=== PATIENT | male | born 1995 | race Caucasian/White ===

== ENCOUNTER 2023-04-23 13:15 | Emergency (ER) | payer BC, SELFPAY ==
[2023-04-23] VITALS (7 sets, daily range): BP systolic 119–138; BP diastolic 70–78; PULSE 80–100; RESP 14–23; TEMP 36.7; O2SAT 96–98; BMI 30.7
--- NOTE | 2023-04-23 13:24 | ECG_ITS ---
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
--- NOTE | 2023-04-23 13:45 | XR_ITS ---
[address] [address] Patient Name: RUFINO CAMACHO MRN: [id number] date: 1995 Sex: M Assigned Patient Location: ER Current Patient Location: ED.MAIN Accession/Order Number: [id number] Exam Date: 04/23/2023 13:45 Report Date: 04/23/2023 14:19 At the request of: LINK KAUR Procedure: XR chest 1V XR chest 1V 04/23/2023 1:45 PM EDT INDICATION: Chest pain COMPARISON: CT angiography of the chest 09/19/2022 FINDINGS: Cardiomediastinal silhouette within normal limits. No focal consolidation or pleural effusion. No pneumothorax. No acute fracture or dislocation. IMPRESSION: No acute cardiopulmonary process. Electronically authenticated by: GEO GOLDSTEIN Date: 04/23/2023 14:19
--- NOTE | 2023-04-23 13:50 | ED.CHESTPAI1 ---
HPI - Chest Pain General Chief Complaint: Chest Pain Stated Complaint: CHEST PAIN, TINGLING IN ARMS Time Seen by Provider: 04/23/23 13:24 Source: patient Mode of arrival: walk-in History of Present Illness HPI narrative: 27-year-old male past medical history anxiety and depression who is on Seroquel and propranolol presents for midsternal chest pain that radiated down his left arm that started at midnight last night. Symptoms lasted a couple minutes. Denies alleviating or aggravating factors. His symptoms have resolved and has now been about 14 hours since symptom onset. He states that he came in because he just wanted to know what could have caused that. He smokes cigarettes and marijuana. Denies illegal drug use. Denies fever, cough, dizziness, headache, vision changes, abd or back pain, n/v/d, SOB Severity: mild Risk Factors Coronary artery disease risk factors: smoking history Related Data Home Medications Medication Instructions Recorded Confirmed propranolol 20 mg tablet 20 mg PO TID 04/23/23 04/23/23 quetiapine 200 mg tablet 200 mg PO DAILY 04/23/23 04/23/23 Allergies Allergy/AdvReac Type Severity Reaction Status Date / Time No Known Drug Allergies Allergy Verified 04/23/23 13:21 Review of Systems ROS Status of ROS 10 or more systems reviewed and unremarkable except as noted in history and below [facility] Medical History (Updated 04/23/23 @ 14:15 by GALO Victor) Exam Narrative Exam Narrative: General: A&Ox3, no distress, talking in full an complete sentences, fidgety skin: warm, dry, intact head: normocephalic, atraumatic eyes: EOMI nose: nares patent neck: supple, trachea midline cardiac: +S1/S1. no murmur respiratory: lungs CTA, non-labored, no wheezing, no retractions chest wall: NT abdomen: soft, NT extremities: FROM x 4, strength +5/5 neuro: A&Ox3 psych: appropriate mood and affect, cooperative Constitutional Vital Signs - 24 hr 04/23/23 13:21 04/23/23 13:23 04/23/23 13:23 Temperature 98.1 F Pulse Rate 100 H 94 H Pulse Rate [Monitor] 90 Respiratory Rate 16 16 15 Blood Pressure 137/78 H Blood Pressure [Right Arm] 138/78 H Pulse Oximetry 98 97 98 Oxygen Delivery Method Room Air 04/23/23 13:30 04/23/23 13:48 04/23/23 13:50 Temperature Pulse Rate 80 80 82 Pulse Rate [Monitor] Respiratory Rate 20 18 23 Blood Pressure 119/70 Blood Pressure [Right Arm] Pulse Oximetry 97 96 98 Oxygen Delivery Method 04/23/23 14:00 04/23/23 14:10 Temperature Pulse Rate 84 91 H Pulse Rate [Monitor] Respiratory Rate 16 14 Blood Pressure Blood Pressure [Right Arm] Pulse Oximetry 98 98 Oxygen Delivery Method Course Vital Signs Vital signs: Vital Signs Temperature 98.1 F 04/23/23 13:21 Pulse Rate 90 04/23/23 13:21 Respiratory Rate 16 04/23/23 13:21 Blood Pressure 138/78 H 04/23/23 13:21 Pulse Oximetry 98 04/23/23 13:21 Oxygen Delivery Method Room Air 04/23/23 13:21 Temperature 98.1 F 04/23/23 13:21 Pulse Rate 91 H 04/23/23 14:10 Respiratory Rate 14 04/23/23 14:10 Blood Pressure 119/70 04/23/23 13:30 Pulse Oximetry 98 04/23/23 14:10 Oxygen Delivery Method Room Air 04/23/23 13:21 MDM - Chest Pain MDM Narrative Medical decision making narrative: EKG sinus rhythm at a rate of 93. No significant lab normalities. No acute findings on final read of chest x-ray. Drug screen is pending and patient states that he urinated prior to coming here and does not have to urinate. Possibly anxiety is patient is currently fidgety and chewing on his fingers. Symptoms started 14 hours ago and have completely resolved. He is to follow-up with family doctor. afebrile, not tachycardic, non toxic appearing and ambulating at baseline and hemodynamically stable to be d/c. answered all questions. pt in agreement with tx. educated when to return to ER. Differential Diagnosis Differential diagnosis: Likely atypical chest pain Lab Data Attestation: I reviewed the patient's lab results. Labs: Lab Results 04/23/23 Range/Units 13:43 WBC 5.8 (4.0-11.0) 10^3/uL RBC 4.45 L (4.70-6.10) 10^6/uL Hgb 12.6 L (14.0-18.0) g/dL Hct 37.2 L (42.0-54.0) % MCV 83.6 (80.0-94.0) fL MCH 28.3 (25.9-34.0) pg MCHC 33.9 (29.9-35.2) g/dL RDW 12.7 (11.0-15.0) % Plt Count 323 (150-450) 10^3/uL MPV 9.4 L (9.5-13.5) fL Neut % (Auto) 57.2 (43.0-75.0) % Lymph % (Auto) 31.5 (20.5-60.0) % Dodge % (Auto) 8.5 (1.7-12.0) % Eos % (Auto) 2.4 (0.9-7.0) % Baso % (Auto) 0.2 (0.2-2.0) % Neut # (Auto) 3.3 (1.4-6.5) 10^3/uL Lymph # (Auto) 1.8 (1.2-3.8) 10^3/uL [place] # (Auto) 0.5 (0.3-0.8) 10^3/uL Eos # (Auto) 0.1 (0.0-0.7) 10^3/uL Baso # (Auto) 0.0 (0.0-0.1) 10^3/uL Abs Immat Gran (auto) 0.01 (0.00-0.03) 10^3/uL Imm/Tot Granulo (auto) 0.2 (0.0-0.5) % Sodium 133 L (136-145) mmol/L Potassium 3.5 (3.5-5.1) mmol/L Chloride 103 (98-107) mmol/L Carbon Dioxide 22.9 (21.0-32.0) mmol/L Anion Gap 10.6 BUN 17.0 (7.0-18.0) mg/dL Creatinine 0.92 (0.70-1.30) mg/dL Est GFR ( Amer) >60 (>=60) Est GFR (Non-Af Amer) >60 (>=60) BUN/Creatinine Ratio 18.5 Glucose 113 H (74-106) mg/dL Calcium 9.1 (8.5-10.1) mg/dL Magnesium 1.8 (1.8-2.4) mg/dL Troponin I High Sens <4.0 L (4.0-76.1) pg/mL NT-Pro-B Natriuret Pep 235.0 (<=450.0) pg/mL ECG Data Prior ECG tracings: not available for review Heart Score History: Slightly/Non-Suspicious ECG: Normal Age: <45 years Risk Factors: 1 or 2 Risk Factors Troponin: <Normal Limit Total Heart Score Recommendations & Risks:: 1 Discharge Plan Discharge Chief Complaint: Chest Pain Clinical Impression: Chest pain Qualifiers: Chest pain type: unspecified Qualified Code(s): R07.9 - Chest pain, unspecified Patient Disposition: Home, Self-Care Time of Disposition Decision: 14:17 Condition: Good Mode of Transportation: Private Vehicle Prescriptions / Home Meds: No Action quetiapine 200 mg tablet 200 mg PO DAILY propranolol 20 mg tablet 20 mg PO TID Instructions: Chest Pain (ED) Stand Alone Forms: Portal Instructions Referrals: SIMÓN TAN [Primary Care Provider] - 1 week Discharge Date/Time: 04/23/23 14:28
[2023-04-23 13:59] LABS: Magnesium 1.8 mg/dL (1.8-2.4)
[2023-04-23 14:02] LABS: Basophils Percent Auto 0.2 % (0.2-2.0); Eosinophils Absolute Auto 0.1 10^3/uL (0.0-0.7); Eosinophils Percent Auto 2.4 % (0.9-7.0); Hematocrit 37.2 % (42.0-54.0); Hemoglobin 12.6 g/dL (14.0-18.0); Immature Granulocytes Abs Auto 0.01 10^3/uL (0.00-0.03); Immature Granulocytes Pct Auto 0.2 % (0.0-0.5); Lymphocytes Absolute Auto 1.8 10^3/uL (1.2-3.8); Lymphocytes Percent Auto 31.5 % (20.5-60.0); Mean Corpuscular HGB Conc 33.9 g/dL (29.9-35.2); Mean Corpuscular Hemoglobin 28.3 pg (25.9-34.0); Mean Corpuscular Volume 83.6 fL (80.0-94.0); Mean Platelet Volume 9.4 fL (9.5-13.5); Monocytes Absolute Auto 0.5 10^3/uL (0.3-0.8); Monocytes Percent Auto 8.5 % (1.7-12.0); Neutrophils Absolute Auto 3.3 10^3/uL (1.4-6.5); Neutrophils Percent Auto 57.2 % (43.0-75.0); Platelet Count 323 10^3/uL (150-450); Red Blood Count 4.45 10^6/uL (4.70-6.10); Red Cell Distribution Width 12.7 % (11.0-15.0); White Blood Count 5.8 10^3/uL (4.0-11.0)
[2023-04-23 14:10] LABS: Anion Gap 10.6; BUN Creatinine Ratio 18.5; Calcium 9.1 mg/dL (8.5-10.1); Carbon Dioxide 22.9 mmol/L (21.0-32.0); Chloride 103 mmol/L (98-107); Estimated GFR (African America >60 (>=60); Estimated GFR (Non-African Ame >60 (>=60); Glucose 113 mg/dL (74-106); Potassium 3.5 mmol/L (3.5-5.1); Sodium 133 mmol/L (136-145); Troponin I High Sensitivity <4.0 pg/mL (4.0-76.1)
== END 2023-04-23 14:28 | disposition home or self-care (01) ==
PROVIDERS: Physician Assistant; Emergency Provider Emergency Medicine Emergency Medical Services; PCP Family Medicine
DX: R07.9 Chest pain, unspecified (principal); F41.9 Anxiety disorder, unspecified; F32.A Depression, unspecified; F17.210 Nicotine dependence, cigarettes, uncomplicated; F12.90 Cannabis use, unspecified, uncomplicated; Z79.899 Other long term (current) drug therapy
CPT/HCPCS: 36415; 71045; 80048; 80307; 83735; 83880; 84484; 85025; 93005; 99285

== ENCOUNTER 2023-05-22 11:35 | Emergency (ER) | payer BC, OTHER, SELFPAY ==
[2023-05-22 11:43] VITALS: BP 148/94; PULSE 103; RESP 18; TEMP 36.6; O2SAT 100; BMI 27.9
[2023-05-22 11:48] VITALS: PULSE 102
--- NOTE | 2023-05-22 11:53 | ECG_ITS ---
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
--- NOTE | 2023-05-22 11:53 | XR_ITS ---
The [address] [address] Patient Name: RUFINO CAMACHO MRN: [id number] date: 1995 Sex: M Assigned Patient Location: ER Current Patient Location: ER Accession/Order Number: [id number] Exam Date: 05/22/2023 12:00 Report Date: 05/22/2023 12:19 At the request of: LULY AVILA Procedure: XR chest 1V EXAM: XR chest 1V HISTORY: . SOB . COMPARISON: 10/24/2022 TECHNIQUE: Single view of the chest FINDINGS: Heart and vascularity are unremarkable. Lungs are free of focal infiltrates. EKG leads overlie the chest. XR/XR chest 1V IMPRESSION: No acute heart or lung disease identified. Electronically authenticated by: SHRUTI TOWNSEND Date: 05/22/2023 12:19
--- NOTE | 2023-05-22 11:55 | ED_ITS ---
HPI - Chest Pain General Chief Complaint: Chest Pain Stated Complaint: CHEST PAIN/FEELS MUSCLES LIKE TIGHTENING Time Seen by Provider: 05/22/23 11:48 Source: patient Mode of arrival: walk-in Limitations: no limitations History of Present Illness HPI narrative: 27-year-old male presents for pain in his chest. The entire chest hurts and it's been this way for about seven hours continuously. No trauma. He's been und erlying stress recently and he ran out of his propanolol. He feels that he couldn't get through to his doctor's office. He is on propanolol for palpitations. No fever or cough or complaints of back pain. No injury. Related Data Home Medications Medication Instructions Recorded Confirmed propranolol 20 mg tablet 20 mg PO TID 04/23/23 04/23/23 quetiapine 200 mg tablet 200 mg PO DAILY 04/23/23 04/23/23 Previous Rx's Medication Instructions Recorded propranolol 20 mg tablet 20 mg PO Q8H #14 tabs 05/22/23 Allergies Allergy/AdvReac Type Severity Reaction Status Date / Time No Known Drug Allergies Allergy Verified 04/23/23 13:21 Review of Systems ROS Narrative A ten point review of systems is negative except as noted above. [facility] Medical History (Updated 05/22/23 @ 12:28 by Skyler Loaiza MD) Exam Narrative Exam Narrative: Nurses note and vital signs reviewed and patient is not hypoxic. General: The patient appears well and in no apparent distress. Patient is resting comfortably on cart. Skin: Warm, dry, no pallor noted. There is no rash noted. Head: Normocephalic, atraumatic Eye: Normal conjunctiva, no drainage Ears, Nose, Mouth, and Throat: oral mucosa is moist. Nares patent. Cardiovascular: Regular Rate and Rhythm, minimally tachycardic Respiratory: Patient is in no distress, no accessory muscle use, lungs are rajeev ar to auscultation, no wheezing, rales or rhonchi Back: non-tender GI: soft and nontender Musculoskeletal: The patient has no evidence of calf tenderness, no pitting edema, symmetrical pulses noted bilaterally Neurological: A&O, normal speech Psychiatric: Cooperative Constitutional Vital Signs, click to edit/add: Last Vital Signs Temp 98 F 05/22/23 11:43 Pulse 103 H 05/22/23 11:43 Resp 18 08/03/23 11:43 BP 148/94 H 05/22/23 11:43 Pulse Ox 100 05/22/23 11:43 O2 Del Method Room Air 05/22/23 11:43 Course Vital Signs Vital signs: Vital Signs Temperature 98 F 05/22/23 11:43 Pulse Rate 103 H 05/22/23 11:43 Respiratory Rate 18 05/22/23 11:43 Blood Pressure 148/94 H 05/22/23 11:43 Pulse Oximetry 100 05/22/23 11:43 Oxygen Delivery Method Room Air 05/22/23 11:43 Temperature 98 F 05/22/23 11:43 Pulse Rate 103 H 05/22/23 11:43 Respiratory Rate 18 05/22/23 11:43 Blood Pressure 148/94 H 05/22/23 11:43 Pulse Oximetry 100 05/22/23 11:43 Oxygen Delivery Method Room Air 05/22/23 11:43 MDM - Chest Pain MDM Narrative Medical decision making narrative: chest x-ray and EKG both showed no acute findings. He's run out of his propranolol and is given a short refill. He is going to call his doctor for follow-up. At this point I do not suspect cardiac or pulmonary etiology. He was offered IM Toradol but did not want to. Treatment diagnosis and follow-up were discussed with the patient. Differential Diagnosis Differential diagnosis: Likely pneumothorax, atypical chest pain, st elevation myocardial infarction, costochondritis and chest pain Imaging Data Chest x-ray: Radiologist's impression: chest x-ray per radiologist shows no acute findings ECG Data Attestation: I personally reviewed and interpreted this ECG as follows: (EKG on my interpretation shows sinus rhythm with rate of ninety-eight in no acute changes) Heart Score History: Slightly/Non-Suspicious ECG: Normal Age: <45 years Risk Factors: No Risk Factors Troponin: <Normal Limit (troponin not performed, not indicated) Total Heart Score Recommendations & Risks:: 0 Discharge Plan Discharge Chief Complaint: Chest Pain Clinical Impression: Chest pain Patient Disposition: Home, Self-Care Time of Disposition Decision: 12:27 Condition: Good Mode of Transportation: Private Vehicle Prescriptions / Home Meds: New propranolol 20 mg tablet 20 mg PO Q8H Qty: 14 0RF No Action quetiapine 200 mg tablet 200 mg PO DAILY propranolol 20 mg tablet 20 mg PO TID Instructions: Chest Pain (ED) Stand Alone Forms: Portal Instructions Referrals: SIMÓN TAN [Primary Care Provider] - 1 week
== END 2023-05-22 12:38 | disposition home or self-care (01) ==
PROVIDERS: Emergency Provider Emergency Medicine; PCP Family Medicine
DX: R07.9 Chest pain, unspecified (principal); Z79.899 Other long term (current) drug therapy
CPT/HCPCS: 71045; 93005; 99284

== ENCOUNTER 2023-06-04 04:30 | Emergency (ER) | payer BC, OTHER, SELFPAY ==
[2023-06-04 04:33] VITALS: BP 102/73; PULSE 119; RESP 15; O2SAT 98
--- NOTE | 2023-06-04 04:35 | ECG_ITS ---
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
[2023-06-04 04:38] VITALS: PULSE 119
--- NOTE | 2023-06-04 04:49 | ED_ITS ---
HPI - Anxiety General Chief Complaint: Anxiety Stated Complaint: PANIC ATTACK Source: patient Mode of arrival: ambulance Limitations: no limitations History of Present Illness HPI narrative: patient presents via Squad. States used methamphetamine , marijuana and took Seroquel yesterday. states not sure why he took seroquel. states he is afraid to stand up because he feels like he may pass out. feels anxious. Feels like if he talks to long his BP will drop complaint: Reports anxiety Related Data Home Medications Medication Instructions Recorded Confirmed propranolol 20 mg tablet 20 mg PO TID 04/23/23 04/23/23 quetiapine 200 mg tablet 200 mg PO DAILY 04/23/23 04/23/23 Previous Rx's Medication Instructions Recorded propranolol 20 mg tablet 20 mg PO Q8H #14 tabs 05/22/23 Allergies Allergy/AdvReac Type Severity Reaction Status Date / Time No Known Drug Allergies Allergy Verified 06/04/23 04:38 Review of Systems ROS Status of ROS unobtainable due to mental status [facility] Medical History (Updated 06/04/23 @ 05:44 by Eamon Prater MD) Social History Smoking status: Current every day smoker Exam Constitutional Vital Signs, click to edit/add: Last Vital Signs Pulse 119 H 06/04/23 04:33 Resp 15 06/04/23 04:33 BP 102/73 06/04/23 04:33 Pulse Ox 98 06/04/23 04:33 O2 Del Method Room Air 06/04/23 04:33 Common normals: average body habitus and alert General appearance: anxious Orientation/consciousness: Yes other (rapid speech but semi sedated) Eye Common normals: EOMs intact bilaterally and conjunctivae normal Respiratory Common normals: normal respiratory effort, no retractions and no use of accessory muscles Cardio Common normals: regular rate, regular rhythm, S1 normal heart sound and S2 normal heart sound GI Common normals: Normal to inspection, nondistended, normoactive bowel sounds present, soft to palpation and non-tender Extremity Common normals: normal to inspection and full ROM Neuro Common normals: moves all extremities, no focal motor deficits and no sensory deficits noted Psych Speech: rapid Mood and affect: anxious Course Vital Signs Vital signs: Vital Signs Pulse Rate 119 H 06/04/23 04:33 Respiratory Rate 15 06/04/23 04:33 Blood Pressure 102/73 06/04/23 04:33 Pulse Oximetry 98 06/04/23 04:33 Oxygen Delivery Method Room Air 06/04/23 04:33 Pulse Rate 119 H 06/04/23 04:33 Respiratory Rate 15 06/04/23 04:33 Blood Pressure 102/73 06/04/23 04:33 Pulse Oximetry 98 06/04/23 04:33 Oxygen Delivery Method Room Air 06/04/23 04:33 MDM - Anxiety MDM Narrative Medical decision making narrative: patient is now more awake. Went to the bathroom. Refusing to have any testing done. States he is calling for a ride home. He is not wanting any testing done. Patient to sign out against AMA. Clinically he presents under the influence of drugs. Suspect methamphetamine or similar stimulant. Urine drug screen positive for methamphetamine and amphetamine Lab Data Labs: Lab Results 06/04/23 Range/Units 05:00 Urine Opiates Screen Negative (NEGATIVE) Ur Buprenorphine Scrn Negative (NEGATIVE) Ur Oxycodone Screen Negative (NEGATIVE) Urine Methadone Screen Negative (NEGATIVE) Ur Propoxyphene Screen Negative (NEGATIVE) Ur Barbiturates Screen Negative (NEGATIVE) U Tricyclic Antidepress Positive A (NEGATIVE) Ur Phencyclidine Scrn Negative (NEGATIVE) Ur Amphetamines Screen Positive A (NEGATIVE) U Methamphetamines Scrn Positive A (NEGATIVE) U Benzodiazepines Scrn Negative (NEGATIVE) Urine Cocaine Screen Negative (NEGATIVE) U Cannabinoids Screen Positive A (NEGATIVE) Discharge Plan Discharge Chief Complaint: Anxiety Clinical Impression: Active substance abuse, Acute anxiety Patient Disposition: Left Against Medical Advice Prescriptions / Home Meds: No Action quetiapine 200 mg tablet 200 mg PO DAILY propranolol 20 mg tablet 20 mg PO TID propranolol 20 mg tablet 20 mg PO Q8H Qty: 14 0RF Stand Alone Forms: Portal Instructions Referrals: SIMÓN TAN [Primary Care Provider] - 1 week
[2023-06-04 05:26] LABS: Amphetamine Screen Urine POSITIVE (NEGATIVE); Barbiturates Screen Urine NEGATIVE (NEGATIVE); Benzodiazepines Screen Urine NEGATIVE (NEGATIVE); Buprenorphine Screen Urine NEGATIVE (NEGATIVE); Cannabinoid Screen Urine POSITIVE (NEGATIVE); Cocaine Screen Urine NEGATIVE (NEGATIVE); Methadone Screen Urine NEGATIVE (NEGATIVE); Methamphetamines Screen Urine POSITIVE (NEGATIVE); Opiate Screen Urine NEGATIVE (NEGATIVE); Oxycodone Screen Urine NEGATIVE (NEGATIVE); Phencyclidine Screen Urine NEGATIVE (NEGATIVE); Tricyclic Antidepressant Urine POSITIVE (NEGATIVE)
== END 2023-06-04 05:40 | disposition left against medical advice (07) ==
PROVIDERS: Emergency Provider Internal Medicine; PCP Family Medicine
DX: F15.10 Other stimulant abuse, uncomplicated (principal); F12.10 Cannabis abuse, uncomplicated; F19.10 Other psychoactive substance abuse, uncomplicated; F41.9 Anxiety disorder, unspecified; F17.210 Nicotine dependence, cigarettes, uncomplicated; Z53.29 Procedure and treatment not carried out because of patient's decision for other reasons
CPT/HCPCS: 80048; 80179; 80307; 80320; 80329; 84484; 93005; 99284

== ENCOUNTER 2023-07-26 12:55 | Emergency (ER) | payer BC, OTHER, SELFPAY ==
[2023-07-26 12:59] VITALS: BP 153/93; PULSE 91; RESP 16; TEMP 36.7; O2SAT 99; BMI 27.9
--- NOTE | 2023-07-26 13:18 | PC.NURSE ---
Lungs clear throughout, denies any SOB
--- NOTE | 2023-07-26 13:30 | ED_ITS ---
HPI - Abdominal Pain General Chief Complaint: Abdominal Pain Stated Complaint: CHEST/BACK PAIN/BAD ACID REFLUX Time Seen by Provider: 07/26/23 12:59 Source: patient and family Mode of arrival: walk-in Limitations: no limitations History of Present Illness HPI narrative: heartburn symptoms for several days - acid taste in mouth, burning sensation up and down the chest with some epigastric discomfort, made worse by eating pizza this morning. Today the pain started to go into the RUQ and right back so he thought he might be having a GB attack. Mild nausea earlier but none now. No vomiting or diarrhea. No history of GB disease. he did not take anything OTC for the reflux symptoms. Related Data Home Medications Medication Instructions Recorded Confirmed quetiapine 200 mg tablet 200 mg PO DAILY 04/23/23 07/26/23 lithium carbonate 300 mg tablet 300 mg PO BID 07/26/23 07/26/23 propranolol 20 mg tablet 40 mg PO BID 07/26/23 07/26/23 Previous Rx's Medication Instructions Recorded omeprazole 40 mg capsule,delayed 40 mg PO DAILY 14 days #14 caps 07/26/23 release Allergies Allergy/AdvReac Type Severity Reaction Status Date / Time No Known Drug Allergies Allergy Verified 07/26/23 13:02 [facility] Medical History (Updated 07/26/23 @ 13:30 by Santiago Luna) Bipolar 1 disorder ?F31.9 - Bipolar disorder, unspecified (ICD-10) Irregular heartbeat ?I49.9 - Cardiac arrhythmia, unspecified (ICD-10) Social History Smoking status: Current every day smoker Exam Narrative Exam Narrative: Nurses notes and vital signs reviewed and patient is not hypoxic. afebrile General: Well-appearing and in no apparent distress. Skin: Warm, dry, no pallor noted. No rash. Eye: Pupils are equal, round and EOMI. No scleral icterus. Cardiovascular: Regular Rate and Rhythm without murmur, gallop or rub. Respiratory: No accessory muscle use or respiratory distress. Lungs are clear to auscultation, no wheezing, rales or rhonchi Back: No CVA tenderness GI: Abdomen is soft, non-distended. Normal bowel sounds. No masses appreciated. No tenderness to palpation. No rebound, guarding, or rigidity noted. Neurological: A&O x4. No cranial nerve dysfunction observed. No truncal ataxia. Moves all extremities. Sensation intact. Psychiatric: Cooperative and interactive. Normal mood and affect. Constitutional Vital Signs, click to edit/add: Last Vital Signs Temp 98.1 F 07/26/23 12:59 Pulse 91 H 07/26/23 12:59 Resp 16 07/26/23 12:59 BP 153/93 H 07/26/23 12:59 Pulse Ox 99 07/26/23 12:59 O2 Del Method Room Air 07/26/23 13:17 Course Vital Signs Vital signs: Vital Signs Temperature 98.1 F 07/26/23 12:59 Pulse Rate 91 H 07/26/23 12:59 Respiratory Rate 16 07/26/23 12:59 Blood Pressure 153/93 H 07/26/23 12:59 Pulse Oximetry 99 07/26/23 12:59 Oxygen Delivery Method Room Air 07/26/23 12:59 Temperature 98.1 F 07/26/23 12:59 Pulse Rate 91 H 07/26/23 12:59 Respiratory Rate 16 07/26/23 12:59 Blood Pressure 153/93 H 07/26/23 12:59 Pulse Oximetry 99 07/26/23 12:59 Oxygen Delivery Method Room Air 07/26/23 13:17 MDM - Abdominal Pain MDM Narrative Medical decision making narrative: no focal RUQ or epigastric TTP. Suspect GERD and will prescribe omeprazole for the patient. ED return if he worsens. We discussed bland diet until symptoms resolve. Discharge Plan Discharge Chief Complaint: Abdominal Pain Clinical Impression: GERD (gastroesophageal reflux disease) Patient Disposition: Home, Self-Care Time of Disposition Decision: 13:29 Prescriptions / Home Meds: New omeprazole 40 mg capsule,delayed release(DR/EC) 40 mg PO DAILY 14 Days Qty: 14 0RF No Action quetiapine 200 mg tablet 200 mg PO DAILY lithium carbonate 300 mg tablet 300 mg PO BID propranolol 20 mg tablet 40 mg PO BID Instructions: GERD (Gastroesophageal Reflux Disease) (ED) Stand Alone Forms: Portal Instructions Referrals: SIMÓN TAN [Primary Care Provider] - 1 week
== END 2023-07-26 13:43 | disposition home or self-care (01) ==
PROVIDERS: Emergency Provider Emergency Medicine; PCP Family Medicine
DX: K21.9 Gastro-esophageal reflux disease without esophagitis (principal); Z79.899 Other long term (current) drug therapy; F31.9 Bipolar disorder, unspecified; F17.210 Nicotine dependence, cigarettes, uncomplicated
CPT/HCPCS: 99283

== ENCOUNTER 2023-08-25 22:43 | Emergency (ER) | payer BC, OTHER, SELFPAY ==
[2023-08-25] VITALS (11 sets, daily range): BP systolic 127; BP diastolic 67; PULSE 91–119; RESP 13–23; TEMP 36.6; O2SAT 95–99; BMI 24.9
--- NOTE | 2023-08-25 22:58 | ED_ITS ---
HPI - Overdose General Chief Complaint: Overdose Stated Complaint: si Time Seen by Provider: 08/25/23 22:54 Source: patient Mode of arrival: ambulance History of Present Illness HPI Narrative: past history of depression. States he was on lithium but has not had it in a couple of months. states he normally takes Seroquel 200mg qd. States he took 5 200mg seroquel pills about 1-1.5 hours ago because he wanted to sleep. States he did not want to kill himself. His called 911 and he is brought here by Squad. complaint: Reports intentional overdose Onset (ago): hour(s) Related Data Home Medications Medication Instructions Recorded Confirmed quetiapine 200 mg tablet 200 mg PO DAILY 04/23/23 07/26/23 lithium carbonate 300 mg tablet 300 mg PO BID 07/26/23 07/26/23 propranolol 20 mg tablet 40 mg PO BID 07/26/23 07/26/23 Previous Rx's Medication Instructions Recorded omeprazole 40 mg capsule,delayed 40 mg PO DAILY 14 days #14 caps 07/26/23 release Allergies Allergy/AdvReac Type Severity Reaction Status Date / Time No Known Drug Allergies Allergy Verified 07/26/23 13:02 Review of Systems ROS Status of ROS 10 or more systems reviewed and unremarkable except as noted in history and below [facility] Medical History (Updated 08/26/23 @ 06:35 by Eamon Prater MD) Bipolar 1 disorder ?F31.9 - Bipolar disorder, unspecified (ICD-10) Irregular heartbeat ?I49.9 - Cardiac arrhythmia, unspecified (ICD-10) Social History Smoking status: Current every day smoker Exam Constitutional Vital Signs, click to edit/add: Last Vital Signs Temp 97.9 F 08/25/23 22:45 Pulse 71 08/26/23 06:28 Resp 14 08/26/23 06:28 BP 144/90 H 08/26/23 06:28 Pulse Ox 98 08/26/23 05:56 O2 Del Method Room Air 08/26/23 05:56 Other: patient is awake but appears sedated. Able to answer question. Dry mouth HENMT Common normals: normocephalic and head/scalp atraumatic Eye Common normals: PERRL, EOMs intact bilaterally and conjunctivae normal Respiratory Common normals: normal respiratory effort, no retractions, no use of accessory muscles and clear to auscultation bilaterally Cardio Common normals: regular rate, regular rhythm, S1 normal heart sound and S2 normal heart sound Extremity Common normals: normal to inspection and full ROM Neuro Common normals: oriented x3, CN's II-XII intact bilaterally, moves all extremities and no focal motor deficits Psych Appearance: grossly normal Course Vital Signs Vital signs: Vital Signs Temperature 97.9 F 08/25/23 22:45 Pulse Rate 118 H 08/25/23 22:45 Respiratory Rate 20 08/25/23 22:45 Blood Pressure 127/67 08/25/23 22:45 Pulse Oximetry 98 08/25/23 22:45 Oxygen Delivery Method Room Air 08/25/23 22:45 Temperature 97.9 F 08/25/23 22:45 Pulse Rate 71 08/26/23 06:28 Respiratory Rate 14 08/26/23 06:28 Blood Pressure 144/90 H 08/26/23 06:28 Pulse Oximetry 98 08/26/23 05:56 Oxygen Delivery Method Room Air 08/26/23 05:56 MDM - Overdose MDM Narrative Medical decision making narrative: patient presents after overdose of Seroquel. States he is depressed but did not want to kill himself but just wanted to sleep. His called 911. He arrives awake but sedated. Drug screen with evidence of polysubstance abuse. poison control contacted and recommended 8 hours of observation. staff not able to contact [facility] until 8am for direction of care. Care transferred to Dr Pruitt at change of shift Lab Data Labs: Lab Results 08/25/23 Range/Units 23:09 WBC 5.6 (4.0-11.0) 10^3/uL RBC 4.18 L (4.70-6.10) 10^6/uL Hgb 12.0 L (14.0-18.0) g/dL Hct 36.4 L (42.0-54.0) % MCV 87.1 (80.0-94.0) fL MCH 28.7 (25.9-34.0) pg MCHC 33.0 (29.9-35.2) g/dL RDW 12.7 (11.0-15.0) % Plt Count 289 (150-450) 10^3/uL MPV 8.9 L (9.5-13.5) fL Neut % (Auto) 55.6 (43.0-75.0) % Lymph % (Auto) 32.3 (20.5-60.0) % Carbon % (Auto) 9.9 (1.7-12.0) % Eos % (Auto) 1.8 (0.9-7.0) % Baso % (Auto) 0.2 (0.2-2.0) % Neut # (Auto) 3.1 (1.4-6.5) 10^3/uL Lymph # (Auto) 1.8 (1.2-3.8) 10^3/uL Carbon # (Auto) 0.6 (0.3-0.8) 10^3/uL Eos # (Auto) 0.1 (0.0-0.7) 10^3/uL Baso # (Auto) 0.0 (0.0-0.1) 10^3/uL Abs Immat Gran (auto) 0.01 (0.00-0.03) 10^3/uL Imm/Tot Granulo (auto) 0.2 (0.0-0.5) % Sodium 137 (136-145) mmol/L Potassium 3.2 L (3.5-5.1) mmol/L Chloride 102 (98-107) mmol/L Carbon Dioxide 25.8 (21.0-32.0) mmol/L Anion Gap 12.4 BUN 24.0 H (7.0-18.0) mg/dL Creatinine 1.16 (0.70-1.30) mg/dL Est GFR ( Amer) >60 (>=60) Est GFR (Non-Af Amer) >60 (>=60) BUN/Creatinine Ratio 20.7 Glucose 127 H (74-106) mg/dL Calcium 9.0 (8.5-10.1) mg/dL Total Bilirubin 0.8 (0.2-1.0) mg/dL AST 18 (15-37) U/L ALT 24 (16-63) U/L Alkaline Phosphatase 69 (46-116) U/L Total Protein 8.0 (6.4-8.2) g/dL Albumin 4.0 (3.4-5.0) g/dL Globulin 4.0 g/dL Albumin/Globulin Ratio 1.0 Salicylates <2.8 (<=19.9) mg/dL Urine Opiates Screen Negative (NEGATIVE) Ur Buprenorphine Scrn Negative (NEGATIVE) Ur Oxycodone Screen Negative (NEGATIVE) Urine Methadone Screen Negative (NEGATIVE) Acetaminophen <2.0 L (10.0-30.0) ug/mL Ur Barbiturates Screen Negative (NEGATIVE) U Tricyclic Antidepress Positive A (NEGATIVE) Ur Phencyclidine Scrn Negative (NEGATIVE) Ur Amphetamines Screen Positive A (NEGATIVE) U Methamphetamines Scrn Positive A (NEGATIVE) U Benzodiazepines Scrn Negative (NEGATIVE) Urine Cocaine Screen Negative (NEGATIVE) U Cannabinoids Screen Positive A (NEGATIVE) Ethanol Quant <3 mg/dL Discharge Plan Discharge Chief Complaint: Overdose Clinical Impression: Depression, Drug overdose Patient Disposition: Still a Patient Prescriptions / Home Meds: No Action quetiapine 200 mg tablet 200 mg PO DAILY lithium carbonate 300 mg tablet 300 mg PO BID propranolol 20 mg tablet 40 mg PO BID omeprazole 40 mg capsule,delayed release(DR/EC) 40 mg PO DAILY 14 Days Qty: 14 0RF Referrals: SIMÓN TAN [Primary Care Provider] - 1 week
[2023-08-25 23:22] LABS: Basophils Percent Auto 0.2 % (0.2-2.0); Eosinophils Absolute Auto 0.1 10^3/uL (0.0-0.7); Eosinophils Percent Auto 1.8 % (0.9-7.0); Hematocrit 36.4 % (42.0-54.0); Immature Granulocytes Abs Auto 0.01 10^3/uL (0.00-0.03); Immature Granulocytes Pct Auto 0.2 % (0.0-0.5); Lymphocytes Absolute Auto 1.8 10^3/uL (1.2-3.8); Lymphocytes Percent Auto 32.3 % (20.5-60.0); Mean Corpuscular Hemoglobin 28.7 pg (25.9-34.0); Mean Corpuscular Volume 87.1 fL (80.0-94.0); Mean Platelet Volume 8.9 fL (9.5-13.5); Monocytes Absolute Auto 0.6 10^3/uL (0.3-0.8); Monocytes Percent Auto 9.9 % (1.7-12.0); Neutrophils Absolute Auto 3.1 10^3/uL (1.4-6.5); Neutrophils Percent Auto 55.6 % (43.0-75.0); Platelet Count 289 10^3/uL (150-450); Red Blood Count 4.18 10^6/uL (4.70-6.10); Red Cell Distribution Width 12.7 % (11.0-15.0); White Blood Count 5.6 10^3/uL (4.0-11.0)
[2023-08-25 23:32] LABS: Alanine Aminotransferase 24 U/L (16-63); Alkaline Phosphatase 69 U/L (46-116); Anion Gap 12.4; Aspartate Amino Transferase 18 U/L (15-37); BUN Creatinine Ratio 20.7; Bilirubin Total 0.8 mg/dL (0.2-1.0); Carbon Dioxide 25.8 mmol/L (21.0-32.0); Chloride 102 mmol/L (98-107); Estimated GFR (African America >60 (>=60); Estimated GFR (Non-African Ame >60 (>=60); Ethanol <3 mg/dL; Glucose 127 mg/dL (74-106); Potassium 3.2 mmol/L (3.5-5.1); Salicylate <2.8 mg/dL (<=19.9); Sodium 137 mmol/L (136-145)
[2023-08-25 23:34] LABS: Acetaminophen <2.0 ug/mL (10.0-30.0)
[2023-08-25 23:55] LABS: Amphetamine Screen Urine POSITIVE (NEGATIVE); Barbiturates Screen Urine NEGATIVE (NEGATIVE); Benzodiazepines Screen Urine NEGATIVE (NEGATIVE); Cannabinoid Screen Urine POSITIVE (NEGATIVE); Cocaine Screen Urine NEGATIVE (NEGATIVE); Methadone Screen Urine NEGATIVE (NEGATIVE); Methamphetamines Screen Urine POSITIVE (NEGATIVE); Opiate Screen Urine NEGATIVE (NEGATIVE); Oxycodone Screen Urine NEGATIVE (NEGATIVE); Phencyclidine Screen Urine NEGATIVE (NEGATIVE); Tricyclic Antidepressant Urine POSITIVE (NEGATIVE)
[2023-08-25 23:56] LABS: Buprenorphine Screen Urine NEGATIVE (NEGATIVE)
[2023-08-26] VITALS (47 sets, daily range): BP systolic 88–144; BP diastolic 48–90; PULSE 63–116; RESP 12–29; O2SAT 98
--- NOTE | 2023-08-26 07:48 | PC.NURSE ---
Pt currently video-chatting with Fito with [facility]. Pt is AxOx4 and cooperative. Facesheet and other paperwork faxed to [facility].
--- NOTE | 2023-08-26 10:09 | PC.NURSE ---
1008 - Report given to VALENTÍN Hatfield at [address] pt will be going to rm 6 bed 2.
--- NOTE | 2023-08-26 22:45 | ECG_ITS ---
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
[2023-08-27 05:11] LABS: Lithium (Eskalith(R)), Serum <0.1 mmol/L (0.5-1.2)
== END 2023-08-26 10:08 ==
PROVIDERS: Emergency Provider Internal Medicine; PCP Family Medicine
DX: F31.9 Bipolar disorder, unspecified (principal); T43.592A Poisoning by other antipsychotics and neuroleptics, intentional self-harm, initial encounter; F19.10 Other psychoactive substance abuse, uncomplicated; Z79.899 Other long term (current) drug therapy; F17.210 Nicotine dependence, cigarettes, uncomplicated
CPT/HCPCS: 36415; 80053; 80178; 80179; 80307; 80320; 80329; 85025; 93005; 99285